=== PATIENT | female | born 1990 | race Caucasian/White ===

== ENCOUNTER 2017-09-05 17:20 | Emergency (ER) | payer OTHER ==
[2017-09-05 17:29] VITALS: TEMP 98.2
--- NOTE | 2017-09-05 17:31 | EDPHY ---
H & P Stated Complaint: rapid hr sensation Time Seen by Provider: 09/05/17 17:24 HPI/ROS: CHIEF COMPLAINT: Is anxiety HISTORY OF PRESENT ILLNESS: The patient is a 27-year-old female with a history of anxiety who began feeling anxious this evening and then felt her heart rate and it was fast she felt palpitations. She denies chest pain or shortness of breath. She called EMS who found her initial heart rate was 140 but sinus. They brought her here to the emergency department and her heart rate is now 100. She states that she is currently asymptomatic. REVIEW OF SYSTEMS: Constitutional: denies: chills, fever, recent illness, recent injury EENTM: denies: blurred vision, double vision, nose congestion Respiratory: denies: cough, shortness of breath Cardiac: See HPI denies: chest pain, irregular heart rate, lightheadedness, palpitations Gastrointestinal/Abdominal: denies: abdominal pain, diarrhea, nausea, vomiting, blood streaked stools Genitourinary: denies: dysuria, frequency, hematuria, pain Musculoskeletal: denies: joint pain, muscle pain Skin: denies: lesions, rash, jaundice, bruising Neurological: denies: headache, numbness, paresthesia, tingling, dizziness, weakness Hematologic/Lymphatic: denies: blood clots, easy bleeding, easy bruising Immunologic/allergic: denies: HIV/AIDS, transplant EXAM: GENERAL: Well-appearing, well-nourished and in no acute distress. HEAD: Atraumatic, normocephalic. EYES: Pupils equal round and reactive to light, extraocular movements intact, sclera anicteric, conjunctiva are normal. ENT: TMs normal, nares patent, oropharynx clear without exudates. Moist mucous membranes. NECK: Normal range of motion, supple without lymphadenopathy or JVD. LUNGS: Breath sounds clear to auscultation bilaterally and equal. No wheezes rales or rhonchi. HEART: Regular rate and rhythm without murmurs, rubs or gallops. ABDOMEN: Soft, nontender, normoactive bowel sounds. No guarding, no rebound. No masses appreciated. BACK: No CVA tenderness, no spinal tenderness, step-offs or deformities EXTREMITIES: Normal range of motion, no pitting or edema. No clubbing or cyanosis. NEUROLOGICAL: Cranial nerves II through XII grossly intact. Normal speech, normal gait. 5/5 strength, normal movement in all extremities, normal sensation PSYCH: Normal mood, normal affect. SKIN: Warm, dry, normal turgor, no visible rashes or lesions. Source: Patient Exam Limitations: No limitations - Personal History LMP (Females 10-55): 8-14 Days Ago Current Tetanus Diphtheria and Acellular Pertussis (TDAP): Unsure - Medical/Surgical History Hx Asthma: No Hx Chronic Respiratory Disease: No Hx Diabetes: No Hx Cardiac Disease: No Hx Renal Disease: No Hx Cirrhosis: No Other PMH: denies - Family History Significant Family History: No pertinent family hx - Social History Smoking Status: Never smoked Alcohol Use: Sober Drug Use: None Constitutional: Initial Vital Signs Temperature (C) 36.8 C 09/05/17 17:20 Heart Rate 103 H 09/05/17 17:20 Respiratory Rate 18 09/05/17 17:20 Blood Pressure 136/88 H 09/05/17 17:20 O2 Sat (%) 99 09/05/17 17:20 O2 Delivery Mode Room Air Allergies/Adverse Reactions: No Known Allergies Allergy (Unverified 09/05/17 17:25) Home Medications: Medication Instructions Recorded NK [No Known Home Meds] 09/05/17 Medical Decision Making - Diagnostics EKG Interpretation: An EKG obtained and was read and documented in trace view. Please see trace view for full reading and report. Sinus rhythm, no acute ischemic changes ED Course/Re-evaluation: 7:30 p.m. the patient has remained in sinus rhythm. It is not tachycardic. She feels much better and is eager to go home. She declines further workup or testing. Her symptoms are most likely from anxiety. I will recommend she follow up with Cardiology. Differential Diagnosis: Partial list of the Differential diagnosis considered include but were not limited to; arrhythmia, anxiety and although unlikely based on the history and physical exam, I also considered infection, acute coronary disease, dissection, PE. I discussed these differential diagnoses and the plan with the patient as well as the usual and expected course. The patient understands that the diagnosis is provisional and that in medicine we are not always correct and that further workup is often warranted. Usual and customary warnings were given. All of the patient's questions were answered. The patient was instructed to return to the emergency department should the symptoms at all worsen or return, otherwise to followup with the physician as we discussed. Departure - Departure Disposition: Home, Routine, Self-Care Clinical Impression: Palpitations, Anxiety about health Condition: Fair Instructions: Heart Palpitations (ED), Anxiety (ED) Referrals: Patient,NotPresent [Unknown] - As per Instructions Man Valladares MD [Medical Doctor] - As per Instructions
--- NOTE | 2017-09-05 17:35 | CPEKG ---
Heart Rate: 91 RR Interval: 659 P-R Interval: 148 QRSD Interval: 78 QT Interval: 360 QTC Interval: 443 P [place]: 37 QRS [place]: 81 T Wave [place]: 62 EKG Severity - BORDERLINE ECG - EKG Impression: SINUS RHYTHM EKG Impression: BORDERLINE T ABNORMALITIES, ANT-LAT LEADS Electronically Signed By: Ladarius Veras 05-Sep-2017 18:02:13
[2017-09-05 18:40] VITALS: O2SAT 97
[2017-09-05 19:46] VITALS: BP 130/82; PULSE 84; RESP 16
== END 2017-09-05 19:45 | disposition home or self-care (01) ==
LOC: EDUNIT#
DX: F41.9 Anxiety disorder, unspecified (principal)